=== PATIENT | female | born 1955 | race Caucasian/White ===

== ENCOUNTER 2018-11-08 11:31 | Inpatient (IN) ==
[2018-11-08] MEDS ORDERED: 0.9 % Sodium Chloride 1,000 ML ONE ×2 (11:44→19:01)
[2018-11-08] MEDS ORDERED: Levofloxacin 750 MG/150 ML 750 MG/150 ML BAG IVPB ONE (11:53)
--- NOTE | 2018-11-08 11:57 | Emergency Department Note ---
Disposition Clinical Impression: Morbid obesity with BMI of 50.0-59.9, adult, Diabetes Disposition: Admitted As Inpatient Condition: Fair Referrals: Alexys Wiley MD [Primary Care Provider] - Forms: ED Satisfaction Letter, Work/School Release Time of Disposition: 14:51 Fever HPI - General Chief Complaint: ED General Medical Stated Complaint: flu like sxs- decreased responsiveness Time Seen by Provider: 11/08/18 11:31 Source: patient, EMS Mode of arrival: EMS Limitations: altered mental status Nursing Notes Reviewed: Yes Vital Signs Reviewed: Yes - History of Present Illness HPI Narrative: 63-year-old female sent in from a local nursing care facility it is a DNR CC stents who is unable to provide any history At this time. Patient reportedly has been decreased altered mental status hypotensive at the nursing care facility and is been sent to the ER they states though that she was having flu symptoms prior to this they had not done a flu swab at the facility bellies had fever cough congestion and now has decreased responsiveness state. There is no additional history or complaints at this time provided by EMS or by nursing care facility Pt Subjective Complaint: fever, malaise, weakness Onset (ago): day(s) Context: sick contacts Associated symptoms: Reports: altered mental status Improves with: nothing Worsens with: nothing Treatments prior to arrival fever: acetaminophen - Related Data Home Medications Medication Instructions Recorded Confirmed Albuterol Sulfate [Albuterol 2 puff IH Q4HR PRN 09/16/16 11/08/18 Inhaler] Fluticasone Propionate Nasal 50 mcg NS DAILY 09/16/16 11/08/18 [Flonase] Gabapentin [Neurontin] 800 mg PO BID 02/15/17 11/08/18 Lidocaine/Prilocaine CREAM [Emla] 1 appl TP AD PRN 02/15/17 11/08/18 Topiramate [Topamax] 50 mg PO BID 02/15/17 11/08/18 Insulin ASPART [Novolog Flexpen] 0 unit SQ TIDAC 03/01/17 11/08/18 Atorvastatin [Lipitor] 40 mg PO HS 05/10/17 11/08/18 Clopidogrel [Plavix] 75 mg PO DAILY 05/10/17 11/08/18 Docusate [Colace] 100 mg PO BID PRN 06/10/17 11/08/18 Insulin Glargine,Hum.rec.anlog 55 unit SQ HS 07/29/17 11/08/18 [Basaglar Lettypen U-100] Alogliptin Benzoate [Alogliptin] 25 mg PO DAILY 10/16/17 11/08/18 Polyethylene Glycol 3350 [MiraLAX] 17 gm PO DAILY PRN 10/16/17 11/08/18 Glimepiride [Amaryl] 4 mg PO QAM 02/07/18 11/08/18 Ipratropium/Albuterol Neb [Duoneb] 3 ml IH Q4H PRN 02/07/18 11/08/18 Oxybutynin Chloride [Ditropan Xl] 10 mg PO HS 02/07/18 11/08/18 Potassium Chloride [K-Tab ER] 20 meq PO DAILY 02/07/18 11/08/18 Promethazine Syrup [Phenergan 12.5 mg PO Q4H PRN 02/07/18 10/18/18 Syrup] Cholecalciferol (D-3) [Vitamin D] 2,000 unit PO DAILY 02/21/18 11/08/18 Famotidine [Pepcid] 20 mg PO DAILY 05/12/18 11/08/18 Aspirin Enteric Coated [Aspirin EC] 2 tab PO DAILY 06/06/18 11/08/18 Methyl Salicylate/Menthol [Bengay] 1 appl TP QID PRN 06/06/18 11/08/18 Meclizine HCl [Verticalm] 25 mg PO Q8H PRN 08/09/18 11/08/18 Furosemide [Lasix] 40 mg PO DAILY 09/22/18 11/08/18 Loratadine [Allergy Relief] 10 mg PO DAILY 09/22/18 11/08/18 Pantoprazole Sodium [Protonix] 20 mg PO DAILY 09/22/18 11/08/18 hydroCHLOROthiazide 25 mg PO DAILY 09/22/18 11/08/18 [Hydrochlorothiazide] Chloraseptic [place] [Chloraseptic] 2 spray MM Q2H PRN 10/18/18 11/08/18 Olopatadine HCl [Patanol] 1 drop OP BID 10/18/18 11/08/18 Previous Rx's Medication Instructions Recorded HYDROcodone/Acet 5/325 mg [[place] 1 tab PO Q4H PRN 3 Days #12 tablet 08/16/18 5-325 mg] LORazepam [Ativan] 0.5 mg PO DAILY PRN 5 Days #5 08/16/18 tablet amLODIPine [Norvasc] 10 mg PO DAILY #30 tablet 08/17/18 Allergies Allergy/AdvReac Type Severity Reaction Status Date / Time diphenhydramine AdvReac See Verified 11/08/18 11:36 [From Benadryl] Comments Oxycodone [From OxyContin] AdvReac Itching Verified 11/08/18 11:36 Limitations: ROS unobtainable due to patients medical condition Fever PMH - Past Medical History Medical history: Reports: cancer, CVA, DVT, diabetes, GERD, hypertension, myocardial infarction, TIA, other Surgical history: Reports: appendectomy, cholecystectomy, ADRIANNE/BSO Psychiatric history: Reports: no psych history - Social History Smoking Status: Never smoker Alcohol use: Reports: none Drug use: Reports: none Physical Exam - General Limitations: altered mental status, age General appearance: in no apparent distress, lethargic - Head Head exam: atraumatic, normocephalic, normal inspection - Eye Eye exam: Present: normal appearance, PERRL, EOMI - ENT ENT exam: normal exam, normal oropharynx, mucous membranes moist, TM's normal bilaterally, normal external ear exam - Neck Neck exam: Present: normal inspection, full ROM, trachea midline - Chest Chest inspection: Present: normal inspection, symmetric chest wall rise - Respiratory Respiratory exam: Present: normal lung sounds bilaterally, wheezes, prolonged expiratory phase - Cardiovascular Cardiovascular exam: Present: tachycardia - Abdominal Exam Abdominal exam: Present: soft, Non-Tender, normal bowel sounds, other (Oval obese). Absent: mass, pulsatile mass - Extremities Exam Extremities exam: Present: normal inspection - Expanded Upper Extremity Exam Shoulder exam: Present: normal inspection Arm exam: Present: normal inspection Elbow exam: Present: normal inspection Forearm/Wrist exam: Present: normal inspection Hand exam: Present: normal inspection - Expanded Lower Extremity Exam Hip/Pelvis exam: Present: normal inspection Upper leg exam: Present: normal inspection Knee exam: Present: normal inspection Lower leg exam: Present: normal inspection Ankle exam: Present: normal inspection Foot/toe exam: Present: normal inspection Neurovascular/Tendon exam: Present: normal capillary refill Gait: not tested/not observed - Back Exam Back exam: Present: normal inspection - Neurological Exam Neurological exam: Present: other (Attended lethargic) - Psychiatric Psychiatric exam: Present: other (Obtunded) - Skin Skin exam: Present: warm, dry, intact, normal color Course Course Narrative: Patient was immediately seen and evaluated laboratory data was done with completion of laboratory data (Dr. Cuevas he is agreed for admission to his services patient was started on anabolic seen in emergency fluid resuscitation was based on her ideal body weight 160 pounds she is morbidly obese by her body habitus repeat labs Vital Signs Temperature 99.8 F H 11/08/18 11:36 Pulse Rate 120 11/08/18 11:36 Respiratory Rate 18 11/08/18 11:36 Blood Pressure 86/68 11/08/18 11:36 O2 Sat by Pulse Oximetry 96 11/08/18 11:36 Temperature 99.8 F H 11/08/18 11:36 Pulse Rate 129 11/08/18 14:01 Respiratory Rate 20 11/08/18 14:01 Blood Pressure 91/80 11/08/18 14:01 O2 Sat by Pulse Oximetry 94 11/08/18 14:01 Oxygen Delivery Oxygen Delivery Nasal Cannula Fever - Differential Diagnosis Likely: community acquired pneumonia, viral infection, sepsis - Medical Records Medical records reviewed: Yes I reviewed the patient's medical records. - Lab Data Lab results reviewed: Yes I reviewed the patient's lab results. Result diagrams: 11/08/18 12:16 11/08/18 12:16 Lab Results 11/08/18 11/08/18 11/08/18 Range/Units 12:16 12:16 12:16 WBC 22.1 H (4.3-11.1) K/mcL RBC 4.80 (3.82-4.97) M/mcL Hgb 14.5 (11.5-15.4) g/dL Hct 42.1 (35.3-44.9) % MCV 87.7 (83.0-100.0) fL MCH 30.2 (28.0-33.3) pg MCHC 34.4 (31.6-35.5) g/dL RDW 12.7 (11.5-14.5) % Plt Count 343 (140-400) K/mcL MPV 9.8 (9.4-12.4) fL Immature Gran % 3.4 (0-4) % Seg Neutrophils % 86.0 % Lymphocytes % 2.9 % Monocytes % 7.2 % Eosinophils % 0.0 % Basophils % 0.5 % Neutrophils # 19.0 H (1.6-8.9) K/mcL Lymphocytes # 0.6 (0.6-4.6) K/mcL Monocytes # 1.6 H (0.0-1.3) K/mcL Eosinophils # 0.0 (0.0-0.6) K/mcL Basophils # 0.1 (0.0-0.2) K/mcL PT 14.6 H (9.4-12.1) Seconds INR 1.3 APTT 27.3 (26.0-36.0) Seconds Sodium 132 L (136-145) mEq/L Potassium 4.3 (3.5-5.1) mEq/L Chloride 94 L (98-107) mEq/L Carbon Dioxide 26 (23-29) mEq/L BUN 74 H (8-23) mg/dL Creatinine 2.15 H (0.60-1.20) mg/dL Est GFR ( Amer) 28 L (> 60) Est GFR (Non-Af Amer) 23 L (> 60) BUN/Creatinine Ratio 34 H (6-26) Glucose 309 H (70-105) mg/dL Calculated Osmolality 308 H (280-300) Lactic Acid (0.5-2.2) mmol/L Calcium 7.2 L (8.6-10.3) mg/dL Total Bilirubin 0.6 (0.3-1.0) mg/dL AST 19 (13-39) Units/L ALT 10 (7-52) Units/L Alkaline Phosphatase 78 (34-104) Units/L Serum Total Protein 4.7 L (6.4-8.9) g/dL Albumin 2.3 L (3.5-5.7) g/dL Globulin 2.4 (2.4-3.5) g/dL Albumin/Globulin Ratio 1.0 L (1.1-2.2) Urine Color (Yellow) Urine Clarity (Clear) Urine pH (5.0-8.0) pH Units Ur Specific [place] (1.010-1.025) Urine Protein (Neg-Trace) mg/dL Urine Glucose (UA) (Normal) mg/dL Urine Ketones (Negative) mg/dL Urine Blood (Negative) Urine Nitrite (Negative) Urine Bilirubin (Negative) Urine Urobilinogen (Normal) mg/dL Ur Leukocyte Esterase (Negative) Ur Culture Indicated? (NO) 11/08/18 11/08/18 Range/Units 12:16 13:55 WBC (4.3-11.1) K/mcL RBC (3.82-4.97) M/mcL Hgb (11.5-15.4) g/dL Hct (35.3-44.9) % MCV (83.0-100.0) fL MCH (28.0-33.3) pg MCHC (31.6-35.5) g/dL RDW (11.5-14.5) % Plt Count (140-400) K/mcL MPV (9.4-12.4) fL Immature Gran % (0-4) % Seg Neutrophils % % Lymphocytes % % Monocytes % % Eosinophils % % Basophils % % Neutrophils # (1.6-8.9) K/mcL Lymphocytes # (0.6-4.6) K/mcL Monocytes # (0.0-1.3) K/mcL Eosinophils # (0.0-0.6) K/mcL Basophils # (0.0-0.2) K/mcL PT (9.4-12.1) Seconds INR APTT (26.0-36.0) Seconds Sodium (136-145) mEq/L Potassium (3.5-5.1) mEq/L Chloride (98-107) mEq/L Carbon Dioxide (23-29) mEq/L BUN (8-23) mg/dL Creatinine (0.60-1.20) mg/dL Est GFR ( Amer) (> 60) Est GFR (Non-Af Amer) (> 60) BUN/Creatinine Ratio (6-26) Glucose (70-105) mg/dL Calculated Osmolality (280-300) Lactic Acid 2.0 (0.5-2.2) mmol/L Calcium (8.6-10.3) mg/dL Total Bilirubin (0.3-1.0) mg/dL AST (13-39) Units/L ALT (7-52) Units/L Alkaline Phosphatase (34-104) Units/L Serum Total Protein (6.4-8.9) g/dL Albumin (3.5-5.7) g/dL Globulin (2.4-3.5) g/dL Albumin/Globulin Ratio (1.1-2.2) Urine Color Missy A (Yellow) Urine Clarity Clear (Clear) Urine pH 5.0 (5.0-8.0) pH Units Ur Specific [place] 1.025 (1.010-1.025) Urine Protein Negative (Neg-Trace) mg/dL Urine Glucose (UA) Normal (Normal) mg/dL Urine Ketones Trace H (Negative) mg/dL Urine Blood Negative (Negative) Urine Nitrite Negative (Negative) Urine Bilirubin Moderate H (Negative) Urine Urobilinogen Normal (Normal) mg/dL Ur Leukocyte Esterase Negative (Negative) Ur Culture Indicated? NO (NO) - Radiology Data Radiology results reviewed: Yes I reviewed the patient's radiology results. ITS Impressions Chest X-Ray 11/08/18 12:53 IMPRESSION: No evidence of pneumonia D/ / Olu Dickson MD / Olu Dickson MD Interpreting Provider: Olu Dickson MD Critical Care Time Critical Care Time: No
[2018-11-08] MEDS ORDERED: 0.9 % Sodium Chloride 1,000 ML IVC SCH ×2 (12:00→18:59)
[2018-11-08 12:31] LABS: Basophils # 0.1 K/mcL (0.0-0.2); Basophils % 0.5 %; Hematocrit 42.1 % (35.3-44.9); Hemoglobin 14.5 g/dL (11.5-15.4); Immature Granulocytes % 3.4 % (0-4); Lymphocytes % 2.9 %; Mean Corpuscular HGB Conc 34.4 g/dL (31.6-35.5); Mean Corpuscular Hemoglobin 30.2 pg (28.0-33.3); Mean Corpuscular Volume 87.7 fL (83.0-100.0); Mean Platelet Volume 9.8 fL (9.4-12.4); Monocytes # 1.6 K/mcL (0.0-1.3); Monocytes % 7.2 %; Platelet Count 343 K/mcL (140-400); Red Cell Distribution Width 12.7 % (11.5-14.5)
[2018-11-08 12:39] LABS: INR 1.3; Prothrombin Time 14.6 Seconds (9.4-12.1)
[2018-11-08 12:42] LABS: Activated Partial Thrombo Time 27.3 Seconds (26.0-36.0)
[2018-11-08 12:45] LABS: Lymphocytes # 0.6 K/mcL (0.6-4.6)
[2018-11-08 12:51] LABS: Albumin 2.3 g/dL (3.5-5.7); Bilirubin,Total 0.6 mg/dL (0.3-1.0); Calcium 7.2 mg/dL (8.6-10.3); Globulin 2.4 g/dL (2.4-3.5); Potassium 4.3 mEq/L (3.5-5.1); Total Protein 4.7 g/dL (6.4-8.9)
[2018-11-08 14:04] LABS: Bilirubin,Urine Moderate (Negative); Blood,Urine Negative (Negative); Clarity,Urine Clear (Clear); Color,Urine Amber (Yellow); Glucose,Urine (UA) Normal (Normal); Ketones,Urine Trace mg/dL (Negative); Leukocyte Esterase,Urine Negative (Negative); Nitrite,Urine Negative (Negative); Protein,Urine Negative (Neg-Trace); Specific Gravity,Urine 1.025 (1.010-1.025); Urobilinogen,Urine Normal (Normal)
--- NOTE | 2018-11-08 17:21 | Internal Med History&Physical ---
Date of Encounter: 11/08/18 Time of Encounter: 16:55 Assessment and Plan (1) MOHSEN (acute kidney injury) Current visit: No Status: Acute Suspect primarily due to dehydration. IV fluids will be given and renal indices will be monitored. (2) Neutrophilic leukocytosis Current visit: Yes Status: Acute Etiology not obvious. She received a dose of Levaquin in emergency room. Chest x-ray and urinalysis in emergency room were unremarkable. (3) HTN (hypertension) Current visit: No Status: Chronic Hypotensive in emergency room with some response to IV fluids. Hold antihypertensive medication, continue IV fluids and monitor. Qualifiers: Hypertension type: essential hypertension Qualified Code(s): I10 - Essential (primary) hypertension (4) Chronic kidney disease Current visit: No Status: Chronic Monitor renal indices as above Qualifiers: Chronic kidney disease stage: stage 3 (moderate) Qualified Code(s): N18.3 - Chronic kidney disease, stage 3 (moderate) (5) Diabetes Current visit: No Status: Chronic Hemoglobin A1c was 7.1% today. Hold diabetic medication until clinically improved. 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 Dupree is a 63 year old female who was brought to emergency room from a local [facility] after staff noted her to have had lethargy, flu symptoms, and hypotension. Blood work this morning drawn at the SNF showed leukocytosis with left shift. She was evaluated in emergency room and found to have acute on chronic renal failure. Flu swab test was negative. [facility]. She cannot give any additional history because of obtundation. Past Med Surg Social Fam HX - Past Medical History Medical history: cancer, CVA, DVT, diabetes, GERD, hypertension, myocardial infarction, TIA, other Additional medical history: Nonhogkins Lymphoma Psychiatric history: no psych history - Past Surgical History Surgical History: appendectomy, cholecystectomy, ADRIANNE/BSO Additional surgical history: R SHOULDER - Social History Smoking Status: Never smoker Smokeless Tobacco Status: No Alcohol use: none Drug use: none - Family History Father Adopted: Yes Family Member Ethnicity: Non- Living Status: Hx Family Cancer: Yes (Mesothelioma) Brother Adopted: Yes Family Member Ethnicity: Non- Living Status: Still Living Hx Family Cancer: Yes (Stomach, Colon) Hx Family Autoimmune Disorders: Yes (Factor V Leiden) Mother Adopted: Yes Family Member Ethnicity: Non- Living Status: Hx Family Cardiac Disorders: Yes (MA, CAD, HTN) Sister Family Member Ethnicity: Non- Living Status: Still Living Internal Medicine - H&P: Meds Albuterol Sulfate [Albuterol Inhaler] 2 puff IH Q4HR PRN 09/16/16 [History] Fluticasone Propionate Nasal [Flonase] 50 mcg NS DAILY 09/16/16 [History] Gabapentin [Neurontin] 800 mg PO BID 02/15/17 [History] Lidocaine/Prilocaine CREAM [Emla] 1 appl TP AD PRN 02/15/17 [History] Topiramate [Topamax] 50 mg PO BID 02/15/17 [History] Insulin ASPART [Novolog Flexpen] 0 unit SQ TIDAC 03/01/17 [History] Atorvastatin [Lipitor] 40 mg PO HS 05/10/17 [History] Clopidogrel [Plavix] 75 mg PO DAILY 05/10/17 [History] Docusate [Colace] 100 mg PO BID PRN 06/10/17 [History] Insulin Glargine,Hum.rec.anlog [Basaglar Kwikpen U-100] 55 unit SQ HS 07/29/17 [History] Alogliptin Benzoate [Alogliptin] 25 mg PO DAILY 10/16/17 [History] Polyethylene Glycol 3350 [MiraLAX] 17 gm PO DAILY PRN 10/16/17 [History] Glimepiride [Amaryl] 4 mg PO QAM 02/07/18 [History] Ipratropium/Albuterol Neb [Duoneb] 3 ml IH Q4H PRN 02/07/18 [History] Oxybutynin Chloride [Ditropan Xl] 10 mg PO HS 02/07/18 [History] Potassium Chloride [K-Tab ER] 20 meq PO DAILY 02/07/18 [History] Promethazine Syrup [Phenergan Syrup] 12.5 mg PO Q4H PRN 02/07/18 [History] Cholecalciferol (D-3) [Vitamin D] 2,000 unit PO DAILY 02/21/18 [History] Famotidine [Pepcid] 20 mg PO DAILY 05/12/18 [History] Aspirin Enteric Coated [Aspirin EC] 2 tab PO DAILY 06/06/18 [History] Methyl Salicylate/Menthol [Bengay] 1 appl TP QID PRN 06/06/18 [History] Meclizine HCl [Verticalm] 25 mg PO Q8H PRN 08/09/18 [History] HYDROcodone/Acet 5/325 mg [[place] 5-325 mg] 1 tab PO Q4H PRN 3 Days #12 tablet 08/16/18 [Rx] LORazepam [Ativan] 0.5 mg PO DAILY PRN 5 Days #5 tablet 08/16/18 [Rx] amLODIPine [Norvasc] 10 mg PO DAILY #30 tablet 08/17/18 [Rx] Furosemide [Lasix] 40 mg PO DAILY 09/22/18 [History] Loratadine [Allergy Relief] 10 mg PO DAILY 09/22/18 [History] Pantoprazole Sodium [Protonix] 20 mg PO DAILY 09/22/18 [History] hydroCHLOROthiazide [Hydrochlorothiazide] 25 mg PO DAILY 09/22/18 [History] Chloraseptic [place] [Chloraseptic] 2 spray MM Q2H PRN 10/18/18 [History] Olopatadine HCl [Patanol] 1 drop OP BID 10/18/18 [History] Allergy/AdvReac Type Severity Reaction Status Date / Time diphenhydramine AdvReac See Verified 11/08/18 11:36 [From Benadryl] Comments Oxycodone [From OxyContin] AdvReac Itching Verified 11/08/18 11:36 All Systems PM: A 10-system review of systems was performed and is negative for pertinent findings except as documented above in the HPI. Review of systems: Review of systems is obtained from available records. Gen.: Her weight has fluctuated between 105 kg and 110 kg since September 2017 Cardiovascular: She has history of hypertension and ASHD status post MA 1997 followed by heart catheter without intervention. Regadenoson stress test 09/28/2017 showed LVEF of 65% with EKG and perfusion imaging negative for ischemia or infarct. Echocardiogram 06/11/2017 showed LVEF of 50%. There was mild LV diastolic dysfunction with reported E/A ratio of 0.5. There was mild aortic regurgitation present. There is no history of DVT or pulmonary embolus Respiratory: She is a lifelong nonsmoker and has no known chronic lung disease GI: She has GERD but no known disorders of liver or exocrine pancreas : No known hematuria dysuria or kidney stones Neurologic: She has had multiple TIAs in the past. 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 Carotid Doppler studies 06/10/2017 showed unremarkable bilateral carotid systems. She has had migraine headaches but no history of seizures. Endocrine: She was diagnosed with DM 2 in 1998. She has hyperlipidemia but no known thyroid disease. Hematology/oncology: She was diagnosed with ovarian cancer approximately 1979 and had curative nephrectomy and hysterectomy. She had melanoma resection in 2009 and is presumed cancer free. She was diagnosed with non-Hodgkin's lymphoma in 2012 and follows with [facility]. Psychiatric: She has anxiety but no known depression or other mental health issues. [place] skeletal: She has DJD, bilateral carpal tunnel surgery, and right reverse total shoulder replacement 02/07/2018. - Constitutional Vitals: Temp Pulse Resp BP Pulse Ox 99.8 F H 136 20 90/49 95 11/08/18 11:36 11/08/18 15:19 11/08/18 15:19 11/08/18 15:19 11/08/18 15:19 Exam: Gen.: She is a well-developed obese female lying in bed who does not respond to voice or light touch HEENT: Head is atraumatic and normocephalic. Eyes: EOMI. There is no scleral icterus. Mouth: Mucosa is dry. Neck: Supple and nontender. There is no thyromegaly or adenopathy noted. Heart: Regular and tachycardic with rate approximately 120/m Lungs: No wheezes or crackles heard. Abdomen: Soft and nontender. She has a well-healed lower midline abdominal scar. She has no masses or guarding. Extremities: There is no cyanosis edema or clubbing noted. Dorsalis pedis and posttibial pulses are trace palpable bilaterally. Her feet are warm to touch. Neurologic: Mental status: She is lying in bed and does not respond significantly to voice or light touch. Cranial nerves: She does not follow comm ands. Her eyes are closed. Her gaze is conjugate on manually lifting her eyelids. Motor: She has equal arm tone on passive range of motion. She withdraws her right foot slightly but does not move her left foot to Babinski testing. No further neurologic testing is attempted. Skin: Warm and dry Internal Med - H&P Results - Labs CBC & Chem 7: 11/08/18 12:16 11/08/18 12:16 Labs: Short CBC 11/08/18 Range/Units 12:16 WBC 22.1 H (4.3-11.1) K/mcL Hgb 14.5 (11.5-15.4) g/dL Hct 42.1 (35.3-44.9) % Plt Count 343 (140-400) K/mcL Neutrophils # 19.0 H (1.6-8.9) K/mcL BMP 11/08/18 12:16 Sodium 132 L Potassium 4.3 Chloride 94 L Carbon Dioxide 26 BUN 74 H Creatinine 2.15 H Glucose 309 H Calcium 7.2 L Liver Function 11/08/18 Range/Units 12:16 Total Bilirubin 0.6 (0.3-1.0) mg/dL AST 19 (13-39) Units/L ALT 10 (7-52) Units/L Alkaline Phosphatase 78 (34-104) Units/L Albumin 2.3 L (3.5-5.7) g/dL Urine 11/08/18 Range/Units 13:55 Urine Color Missy A (Yellow) Urine Clarity Clear (Clear) Urine pH 5.0 (5.0-8.0) pH Units Ur Specific [place] 1.025 (1.010-1.025) Urine Protein Negative (Neg-Trace) mg/dL Urine Glucose (UA) Normal (Normal) mg/dL - Impressions ITS Impressions Chest X-Ray 11/08/18 12:53 IMPRESSION: No evidence of pneumonia D/ / Olu Dickson MD / Olu Dickson MD Interpreting Provider: Olu Dickson MD
[2018-11-08] MEDS ORDERED: 0.9 % Sodium Chloride 500 ML IVC ONE ×2 (18:47→18:59)
[2018-11-08] MEDS ORDERED: D5% in Water 1,000 ML IVC PRN (18:59)
[2018-11-08] MEDS ORDERED: Naloxone 0.4 MG/ML INJ IVP PRN (18:59)
[2018-11-08] MEDS ORDERED: Insulin LISPRO 300 UNITS/3 ML VIAL SQ SCH (18:59)
[2018-11-08] MEDS ORDERED: *HR* Dextrose 50 % in Water (Syg) 50 ML SYRINGE IVP PRN (18:59)
[2018-11-08] MEDS ORDERED: Dextrose Gel 15 GM/37.5 ML TUBE PO PRN ×2 (18:59)
[2018-11-08 19:00] VITALS: BP 63/37
--- NOTE | 2018-11-09 12:14 | Discharge Summary ---
Orders not resulted at time of discharge: Pending orders 11/08/18 12:16 Culture,Blood [BC] Stat Date of Encounter: 11/09/18 Time of Encounter: 12:09 - Discharge Diagnosis (1) MOHSEN (acute kidney injury) Priority: Primary Status: Acute (2) Neutrophilic leukocytosis Priority: Secondary Status: Acute (3) HTN (hypertension) Priority: Secondary Status: Chronic Qualifiers: Hypertension type: essential hypertension Qualified Code(s): I10 - Essential (primary) hypertension (4) Chronic kidney disease Priority: Secondary Status: Chronic Qualifiers: Chronic kidney disease stage: stage 3 (moderate) Qualified Code(s): N18.3 - Chronic kidney disease, stage 3 (moderate) (5) Diabetes Priority: Secondary Status: Chronic Qualifiers: Diabetes mellitus type: type 2 Diabetes mellitus intermediate insulin use: with intermediate use Diabetes mellitus complication status: without complication Qualified Code(s): E11.9 - Type 2 diabetes mellitus without complications; Z79.4 - correction (current) use of insulin Hospital course: Ms. Dupree is a 63 year old female who was brought to emergency room from a local [facility] after staff noted her to have had lethargy, flu symptoms, and hypotension. Blood work this morning drawn at the [facility] showed leukocytosis with left shift. She was evaluated in emergency room and found to have acute on chronic renal failure. Flu swab test was negative. She was admitted to [facility] for ongoing care needs. Initial orders written by the emergency room physician. I saw her the afternoon of November 08 and performed a history and physical. She was given significant quantity of IV fluids in emergency room with maintenance IV continued. Levaquin was given in emergency room. Chest x-ray and urinalysis were unremarkable. She remained tachycardic after arrival to [facility]. Her blood pressure was measured at 63/37 approximately 7 PM. IV fluid was ordered. She continued to decline and at 1953 was found without vitals and was pronounced . No resuscitative efforts were done as per advanced directives. - Time Spent with Patient Total time spent providing and/or coordinating discharge services: - Discharge Medications Home Medications: Albuterol Sulfate [Albuterol Inhaler] 2 puff IH Q4HR PRN 09/16/16 [History] Fluticasone Propionate Nasal [Flonase] 50 mcg NS DAILY 09/16/16 [History] Gabapentin [Neurontin] 800 mg PO BID 02/15/17 [History] Lidocaine/Prilocaine CREAM [Emla] 1 appl TP AD PRN 02/15/17 [History] Topiramate [Topamax] 50 mg PO BID 02/15/17 [History] Insulin ASPART [Novolog Flexpen] 0 unit SQ TIDAC 03/01/17 [History] Atorvastatin [Lipitor] 40 mg PO HS 05/10/17 [History] Clopidogrel [Plavix] 75 mg PO DAILY 05/10/17 [History] Docusate [Colace] 100 mg PO BID PRN 06/10/17 [History] Insulin Glargine,Hum.rec.anlog [Basaglar Kwikpen U-100] 55 unit SQ HS 07/29/17 [History] Alogliptin Benzoate [Alogliptin] 25 mg PO DAILY 10/16/17 [History] Polyethylene Glycol 3350 [MiraLAX] 17 gm PO DAILY PRN 10/16/17 [History] Glimepiride [Amaryl] 4 mg PO QAM 02/07/18 [History] Ipratropium/Albuterol Neb [Duoneb] 3 ml IH Q4H PRN 02/07/18 [History] Oxybutynin Chloride [Ditropan Xl] 10 mg PO HS 02/07/18 [History] Potassium Chloride [K-Tab ER] 20 meq PO DAILY 02/07/18 [History] Promethazine Syrup [Phenergan Syrup] 12.5 mg PO Q4H PRN 02/07/18 [History] Cholecalciferol (D-3) [Vitamin D] 2,000 unit PO DAILY 02/21/18 [History] Famotidine [Pepcid] 20 mg PO DAILY 05/12/18 [History] Aspirin Enteric Coated [Aspirin EC] 2 tab PO DAILY 06/06/18 [History] Methyl Salicylate/Menthol [Bengay] 1 appl TP QID PRN 06/06/18 [History] Meclizine HCl [Verticalm] 25 mg PO Q8H PRN 08/09/18 [History] HYDROcodone/Acet 5/325 mg [[place] 5-325 mg] 1 tab PO Q4H PRN 3 Days #12 tablet 08/16/18 [Rx] LORazepam [Ativan] 0.5 mg PO DAILY PRN 5 Days #5 tablet 08/16/18 [Rx] amLODIPine [Norvasc] 10 mg PO DAILY #30 tablet 08/17/18 [Rx] Furosemide [Lasix] 40 mg PO DAILY 09/22/18 [History] Loratadine [Allergy Relief] 10 mg PO DAILY 09/22/18 [History] Pantoprazole Sodium [Protonix] 20 mg PO DAILY 09/22/18 [History] hydroCHLOROthiazide [Hydrochlorothiazide] 25 mg PO DAILY 09/22/18 [History] Chloraseptic [place] [Chloraseptic] 2 spray MM Q2H PRN 10/18/18 [History] Olopatadine HCl [Patanol] 1 drop OP BID 10/18/18 [History] Allergies/Adverse Reactions: Allergy/AdvReac Type Severity Reaction Status Date / Time diphenhydramine AdvReac See Verified 11/08/18 11:36 [From Benadryl] Comments Oxycodone [From OxyContin] AdvReac Itching Verified 11/08/18 11:36 Date of admission: 11/08/18 18:28 Primary care physician: Alexys Wiley MD - Constitutional Vitals: Temp Pulse Resp BP Pulse Ox 97.7 F 148 24 63/37 92 11/08/18 18:59 11/08/18 18:59 11/08/18 18:59 11/08/18 18:59 11/08/18 18:59 - Patient Status Disposition: - Discharge Instructions
[2018-11-10] MEDS ORDERED: Levofloxacin 750 MG/150 ML 750 MG/150 ML BAG IVPB SCH (12:00)
== END 2018-11-08 19:53 | disposition expired | DRG 469 ==
LOC: INPPIK 11:31 → EMEROOPIK 11:31 → INPPIK 15:40
PROVIDERS: ADMIT Internal Medicine; ATTEND Internal Medicine